=== PATIENT | female | born 1965 | race African-American/Black ===

== ENCOUNTER 2017-07-30 15:51 | Emergency (ER) | payer OTHER ==
[~2017-07-30] VITALS: Ht 160 cm; Wt 57.9 kg
[~2017-07-30 15:51] MED LIST: ALPHAGAN 0100 DROP/5 BOTH EYES; ALPRAZOLAM0.25 M2 PO; ATROVENT 00.5 MG/2.5 IH; BACTRIM,SEPT1 TABLET PO; CEFTIN500 MG PO; CYCLOPHOSPHAMID50 MG PO; CYTOXAN50 MG PO; DELTASONE20 MG PO; DIGOXIN125 MCG PO; DORZOLAMIDE HCL10 ML BOTH EYES; DUREZOL 0.100 DROP/5 BOTH EYES; FORTAMET500 M1 PO; FURO40I PO; FUROSEMIDE20 MG PO; Glucophage PO; IMURAN50 MG PO; KLOR-CON 1010 ME1 PO; Kenalog,Aristocort 0 TP; LACTINEX,FLO1 PACKET PO; LEVAQUIN750 MG PO; Lanoxin,Digitek PO; Lasix PO; Levaquin PO; METFORMIN HCL500 MG PO; METOPROLOL SUCC50 MG PO; Micro-K,K-Tab,K-Dur, PO; NORVASC5 MG PO; NOVOLOG PE100 UNITS/ SC; OMEPRAZOLE40 M1 PO; PLAQUENIL200 MG PO; PREDNISONE10 MG PO; PREDNISONE20 M1 PO; PREDNISONE20 MG PO; PREDNISONE50 MG PO; PRILOSEC40 MG PO; PRINIVIL10 MG PO; PROAIR HFA8.5 GM IH; REFRESH TEARS15 ML BOTH EYES; REGLAN10 M1 PO; REGLAN10 MG PO; Robitussin AC,Tussi- PO; SPIRONOLACTONE25 MG PO; SYMBYAX 12-251 EACH PO; TESSALON PERLE100 MG PO; TOPROL XL6.25 MG PO; TRADJENTA5 MG PO; TRAVATAN 0.004%5 ML BOTH EYES; TRAVATAN Z5 ML BOTH EYES; TYLENOL REGULA325 MG PO; Toprol XL PO; VITAMIN D31000 UNI1 PO; VITAMIN D310000 UNIT PO; VITAMIN D5000 INTUN PO; Xanax PO; Zestril,Prinivil PO; predniSONE PO
[2017-07-30 16:08] LABS: POINT-OF-CARE METER ID UU13113778
[2017-07-30 18:44] LABS: POINT-OF-CARE METER ID UU13113800
[2017-07-30 19:12] LABS: HEMATOCRIT 38.8 % (36.0-46.0); MCHC 31.4 G/DL (30.0-36.0); MCV 92.2 FL (83-99); MEAN PLAT.VOLUME 10.4 uM^3 (9.5-12.4); PLATELET COUNT 385 K/uL (156-360); RBC DIS.WIDTH-CV 13.7 % (11.8-14.6); RBC DIS.WIDTH-SD 46.4 % (39-53); RED BLOOD COUNT 4.21 M/uL (3.80-5.20); WHITE BLOOD COUNT 5.6 K/uL (4.1-10.2)
[2017-07-30 19:13] LABS: CHLORIDE 103 mEq/L (99-109); POTASSIUM 4.3 mEq/L (3.7-5.4); SODIUM 140 mEq/L (136-147)
[2017-07-30 19:15] LABS: GLUCOSE 84 mg/dL (70-99)
[2017-07-30 19:16] LABS: ANION GAP 11 MEQ/L (2-14)
[2017-07-30 19:17] LABS: TOTAL BILIRUBIN 0.3 mg/dL (0.0-1.0)
[2017-07-30 19:19] LABS: ALKALINE PHOSPHATASE 43 IU/L (3-129); GFR ESTIMATE (CALCULATED) > 59 mL/min/
[2017-07-30 19:20] LABS: UREA NITROGEN (BUN) 15 mg/dL (9-23)
[2017-07-30 19:25] LABS: TROP-I INTERPRETATION NEGATIVE; TROPONIN-I < 0.01 ng/mL (0.0-0.30)
[2017-07-30 19:55] LABS: ADD MIUA? NO; BILIRUBIN NEGATIVE; BLOOD NEGATIVE; COLOR STRAW ((YELLOW)); GLUCOSE (STRIP) NEGATIVE; KETONES NEGATIVE; LEUKOCYTES NEGATIVE; NITRITE NEGATIVE; PROTEIN (STRIP) NEGATIVE; SPECIFIC GRAVITY 1.008 (1.000-1.030); UROBILINOGEN 0.2 MG/DL (0.2-1.0)
[2017-07-30] MEDS ORDERED: DUONEB 2.5-0.5 M3 ML AEROSOL (20:30)
[2017-07-30 20:34] LABS: POINT-OF-CARE METER ID UU13113702
[2017-07-30 20:50] VITALS: BP 123/89
== END 2017-07-30 20:50 | disposition home or self-care (01) ==
LOC: EME 15:51 → RME 15:51
PROVIDERS: Nurse Practitioner Family
DX: E11.649 Type 2 diabetes mellitus with hypoglycemia without coma (principal); J84.10 Pulmonary fibrosis, unspecified; M32.9 Systemic lupus erythematosus, unspecified; K21.9 Gastro-esophageal reflux disease without esophagitis
CPT/HCPCS: 71020; 80053; 81003; 82948; 83605; 84484; 85027; 93005; 94640; 99281; 99284

== ENCOUNTER 2018-01-17 04:28 | Emergency (ER) | payer BC, OTHER ==
[~2018-01-17] VITALS: Ht 160 cm; Wt 57.0 kg
[~2018-01-17 04:28] MED LIST changes: +DUONEB 2.5-0.5 M3 ML AEROSOL
[2018-01-17 07:32] LABS: CARBON DIOXIDE (BICARBONATE) 32.7 MEQ/L (20-31)
[2018-01-17 07:38] LABS: HEMATOCRIT 31.9 % (36.0-46.0); HEMOGLOBIN 10.3 G/DL (11.9-15.5); MCH 29.1 PG (29.0-34.0); MCHC 32.3 G/DL (30.0-36.0); MCV 90.1 FL (83-99); RBC DIS.WIDTH-CV 14.4 % (11.8-14.6); RBC DIS.WIDTH-SD 47.6 % (39-53); RED BLOOD COUNT 3.54 M/uL (3.80-5.20); WHITE BLOOD COUNT 9.5 K/uL (4.1-10.2)
[2018-01-17 08:00] LABS: TROP-I INTERPRETATION NEGATIVE; TROPONIN-I < 0.01 ng/mL (0.0-0.30)
[2018-01-17 08:33] LABS: PLATELET COUNT 349 K/uL (156-360)
[2018-01-17] MEDS ORDERED: PREDNISONE20 MG PO (10:44)
[2018-01-17 10:48] LABS: CHLORIDE 102 MEQ/L (99-109); CREATININE 1.1 MG/DL (0.6-1.3); GFR ESTIMATE (CALCULATED) > 59 mL/min/; GLUCOSE 79 mg/dL (70-99); POTASSIUM 4.5 MEQ/L (3.7-5.4); SODIUM 139 MEQ/L (136-147); UREA NITROGEN (BUN) 12 mg/dL (9-23)
[2018-01-17 11:38] VITALS: BP 111/80
== END 2018-01-17 11:41 | disposition home or self-care (01) ==
LOC: EME 04:28
PROVIDERS: Emergency Medicine
DX: J44.9 Chronic obstructive pulmonary disease, unspecified (principal); Z99.81 Dependence on supplemental oxygen; E11.9 Type 2 diabetes mellitus without complications; Z79.4 Long term (current) use of insulin; K21.9 Gastro-esophageal reflux disease without esophagitis; J84.10 Pulmonary fibrosis, unspecified; M32.9 Systemic lupus erythematosus, unspecified; M34.9 Systemic sclerosis, unspecified; Z87.19 Personal history of other diseases of the digestive system
CPT/HCPCS: 71046; 80048; 82803; 83605; 83880; 84484; 85027; 87040; 93005; 94640; 99281; 99285; J7030

== ENCOUNTER → 2018-01-21 | Outpatient (CLI) | payer BC, OTHER | END | disposition home or self-care (01) | LOC: NUC 08:11 | DX: K31.84 Gastroparesis (principal) | CPT/HCPCS: 78264; A9541 ==